=== PATIENT | female | born 1935 ===

== ENCOUNTER 2017-05-20 11:16 | Emergency (ER) | payer MEDICARE, OTHER ==
[2017-05-20 12:14] LABS: BASOPHILS % (AUTO) 1 % (0-3); EOSINOPHILS % (AUTO) 0 % (0-9); HEMATOCRIT 19 % (35-47); MEAN CORPUSCULAR HGB CONC 29.5 gm/dl (32.0-36.0); MONOCYTES % (AUTO) 8.1 % (0-12); NEUTROPHILS % (AUTO) 86.9 % (37-80)
[2017-05-20 12:17] LABS: MEAN CORPUSCULAR VOLUME 72 fL (81-99)
[2017-05-20 12:34] LABS: HYPOCHROMASIA PRESENT
[2017-05-20 12:35] LABS: ANISOCYTOSIS MOD AMT; OVALOCYTES PRESENT; TARGET CELLS PRESENT
[2017-05-20] MEDS ORDERED: SODIUM CHLORIDE 0.9% 1000ML 1,000 ML IV ONE (12:35)
[2017-05-20 13:06] LABS: ABO O; RH TYPE Positive
[2017-05-20 13:07] LABS: ANTIBODY SCREEN Negative; UNIT TYPE O POSITIVE
[2017-05-20] MEDS ORDERED: SODIUM CHLORIDE 0.9% 500 ML 500 ML IV ONE (13:20)
[2017-05-20 13:25] LABS: ALBUMIN 3.2 gm/dl (3.4-5.0); CALCIUM 8.6 mg/dl (8.5-10.1); POTASSIUM 3.9 mMol/L (3.5-5.1)
[2017-05-20] MEDS ORDERED: SODIUM CHLORIDE 0.9% FLUSH 10 ML SOL IV PRN (13:56)
[2017-05-20 15:33] LABS: UNIT TYPE O POSITIVE
[2017-05-20 16:41] VITALS: BP 171/80; PULSE 75; RESP 21; TEMP 97.3; O2SAT 95
== END 2017-05-20 16:35 | disposition short-term general hospital (02) | DRG 379 ==
LOC: ED 11:16
DX: K92.2 Gastrointestinal hemorrhage, unspecified (principal); D64.9 Anemia, unspecified; K92.1 Melena; R11.10 Vomiting, unspecified; R40.2142 Coma scale, eyes open, spontaneous, at arrival to emergency department; R40.2362 Coma scale, best motor response, obeys commands, at arrival to emergency department; R40.2252 Coma scale, best verbal response, oriented, at arrival to emergency department
CPT/HCPCS: 36415; 70450; 80053; 85025; 86850; 86900; 86901; 86920; 96365; 96366; 99070; 99285; 99291; P9016

== ENCOUNTER 2017-07-27 14:01 | Emergency (ER) | payer MEDICARE ==
[2017-07-27] MEDS ORDERED: ASPIRIN 81 MG CHEWABLE CTB PO STA (14:03)
[2017-07-27] MEDS ORDERED: SODIUM CHLORIDE 0.9% FLUSH 10 ML SOL IV PRN (14:03)
[2017-07-27] MEDS ORDERED: NITROGLYCERIN 0.4 MG TAB SL PRN (14:03)
[2017-07-27 14:12] VITALS: TEMP 98.2
[2017-07-27 14:19] LABS: BASOPHILS % (AUTO) 1 % (0-3); EOSINOPHILS % (AUTO) 1 % (0-9); HEMATOCRIT 27 % (35-47); MEAN CORPUSCULAR VOLUME 87 fL (81-99); MONOCYTES % (AUTO) 7.3 % (0-12); NEUTROPHILS % (AUTO) 69.5 % (37-80)
[2017-07-27 14:36] LABS: BLOOD UREA NITROGEN 15 mg/dl (7-18); CALCIUM 8.8 mg/dl (8.5-10.1); CREATININE 1.03 mg/dl (0.60-1.00); GLOM FILT RATE 52 mL/min (>60); GLUCOSE 90 mg/dl (74-106); POTASSIUM 3.7 mMol/L (3.5-5.1); SODIUM 146 mMol/L (136-145)
[2017-07-27 14:42] LABS: ANISOCYTOSIS SLIGHT AMT
[2017-07-27 15:51] VITALS: BP 153/75; PULSE 75; RESP 18; O2SAT 98
== END 2017-07-27 15:30 | disposition home or self-care (01) | DRG 880 ==
LOC: ED 14:01
DX: F41.9 Anxiety disorder, unspecified (principal); I45.10 Unspecified right bundle-branch block
CPT/HCPCS: 36415; 71045; 80048; 82550; 84484; 85025; 85610; 85730; 93005; 99283

== ENCOUNTER 2018-04-10 15:18 | Emergency (ER) | payer MEDICARE, MEDICAID ==
[2018-04-10 15:36] VITALS: RESP 16; TEMP 97; O2SAT 97
[2018-04-10 16:08] LABS: BASOPHILS % (AUTO) 1 % (0-3); EOSINOPHILS % (AUTO) 1 % (0-9); HEMATOCRIT 42 % (35-47); LYMPHOCYTES % (AUTO) 30.5 % (10-50); MEAN CORPUSCULAR HGB CONC 31.2 gm/dl (32.0-36.0); MEAN CORPUSCULAR VOLUME 93 fL (81-99); NEUTROPHILS % (AUTO) 57.4 % (37-80)
[2018-04-10 16:16] LABS: APPEARANCE,URINE Clear; BILIRUBIN,URINE NEGATIVE (NEGATIVE); COLOR,URINE Yellow; GLUCOSE, URINE (UA) NEGATIVE (NEGATIVE); KETONES,URINE NEGATIVE (NEGATIVE); LEUKOCYTE ESTERASE ,URINE TRACE (NEGATIVE); NITRATE,URINE NEGATIVE (NEGATIVE); OCCULT BLOOD,URINE NEGATIVE (NEG-TRACE); UROBILINOGEN,URINE 0.2 (0.2-1.0 EU)
[2018-04-10 16:27] LABS: AMPHETAMINES NEGATIVE (NEGATIVE); BACTERIA NEGATIVE (< 1+); BARBITUATES NEGATIVE (NEGATIVE); BENZODIAZEPINES NEGATIVE (NEGATIVE); CANNABINOL(THC) NEGATIVE (NEGATIVE); COCAINE(COC) NEGATIVE (NEGATIVE); CRYSTALS NEGATIVE (0-3 AVE/HPF); METHADONE NEGATIVE (NEGATIVE); METHAMPHETAMINES NEGATIVE (NEGATIVE); OPIATES(OPI) NEGATIVE (NEGATIVE); OXYCODONE(OXY) NEGATIVE (NEGATIVE); PROPOXYPHENE(PPX) NEGATIVE (NEGATIVE); RBC,URINE NEG (0-3AV/HPF); TRICYCLIC ANTIDEPRESSANTS NEGATIVE (NEGATIVE)
[2018-04-10 16:33] LABS: ALBUMIN 3.3 gm/dl (3.4-5.0); BILIRUBIN,TOTAL 0.4 mg/dl (0.2-1.0); CALCIUM 8.9 mg/dl (8.5-10.1); CARBON DIOXIDE 29.3 mEq/L (21-32); CREATININE 1.32 mg/dl (0.60-1.00); THYROID STIMULATING HORMONE 0.81 uIU/ml (0.358-3.740); TOTAL PROTEIN 7.2 gm/dl (6.4-8.2)
[2018-04-10 16:38] LABS: ALCOHOL 0.005 gm/dl (0.000-0.08)
[2018-04-10] MEDS ORDERED: SODIUM CHLORIDE 0.9% 500 ML 500 ML IV ONE (18:22)
[2018-04-10 18:44] VITALS: BP 147/73; PULSE 64
== END 2018-04-10 19:20 | disposition short-term general hospital (02) | DRG 880 ==
LOC: ED 15:18
DX: R45.851 Suicidal ideations (principal)
CPT/HCPCS: 36415; 80053; 80305; 80307; 81001; 84443; 85025; 96365; 99283; 99285